=== PATIENT | female | born 1965 | race African-American/Black ===

== ENCOUNTER 2016-02-18 08:13 | Outpatient (CLI) | payer MEDICARE, MEDICAID ==
[2016-02-18 08:42] LABS: #Basophils 0.1 thou/uL (0.0-0.2); #Lymphocytes 1.3 thou/uL (1.20-3.40); #Monocytes 0.5 thou/uL (0.11-0.59); #Neutrophils 4.7 thou/uL (1.40-6.50); %Basophils 1.5 % (0.0-1.0); %Lymphocytes 19.8 % (21.0-51.0); %Monocytes 7.3 % (0.0-10.0); %Neutrophils 71.4 % (42.0-75.0); Hemoglobin 13.7 g/dL (12.0-16.0); Mean Corpuscular HGB CONC 33.9 g/dL (32.0-36.0); Mean Corpuscular Hemoglobin 33.2 pg (27.0-31.0); Mean Corpuscular Volume 97.9 fl (81.0-99.0); Mean Platelet Volume 7.9 fL (7.4-10.4); Platelet Count 208 thou/uL (130-400); RBC Distribution Width 13.8 % (11.5-14.5); Red Blood Cell (RBC) Count 4.13 mill/uL (4.20-5.40); White Blood Cell (WBC) Count 6.6 thou/uL (4.8-10.8)
[2016-02-18 09:02] LABS: ALT (SGPT) 11 U/L (0-55); AST (SGOT) 17 U/L (5-34); Albumin 3.8 g/dL (3.5-5.0); Alkaline Phosphatase 57 U/L (40-150); Anion Gap 17 mmol/L (10-20); BUN (Urea Nitrogen) 15 mg/dL (9.8-20.1); Bilirubin, Direct 0.2 mg/dL (0.1-0.3); Bilirubin, Total 0.5 mg/dL (0.2-1.2); Calc. Creatinine Clearance 0 mL/min (70-130); Carbon Dioxide 27 mmol/L (22-29); Cardiac Risk 2.7 (Less than 4.5); Chloride 103 mmol/L (98-107); Cholesterol 184 mg/dL (< 200 Desired); Estimated GFR-MDRD 83; Glucose 91 mg/dL (70-105); HDL Cholesterol 67 mg/dL (>60 Neg Risk); LDL Cholesterol, Calculated 92 mg/dL; Potassium 4.5 mmol/L (3.5-5.1); Sodium 142 mmol/L (136-145); Triglycerides 124 mg/dL (Less than 150)
== END 2016-02-18 08:14 ==
LOC: MADLABBHPM 08:13
PROVIDERS: ATTEND Family Medicine
DX: I10 Essential (primary) hypertension (principal)
CPT/HCPCS: 36415; 80048; 80061; 80076; 85025

== ENCOUNTER 2016-04-17 10:27 | Outpatient (CLI) | payer MEDICARE, MEDICAID ==
[2016-04-17 10:51] LABS: Bilirubin Negative (Negative); Blood, Urine Small (Negative); Clarity Clear (Clear); Glucose, Urine (Dipstick) Negative (Negative); Leukocyte Trace (Negative); Nitrite Negative (Negative); Protein, Urine (Dipstick) Negative (Neg-Trace); Urobilinogen 0.2 mg/dL (0.2-1.0); pH, Urine 5.5 (5.0-9.0)
[2016-04-17 11:32] LABS: Squamous Epithelial 0-3 HPF (0-3)
--- NOTE | 2016-04-17 13:39 | RAD ---
CHEST TWO VIEWS HISTORY: Generalized edema. COMPARISON: 04/25/2009 FINDINGS: The cardiac silhouette is at the upper limits of normal in size. Pulmonary vasculature is slightly engorged with reticulonodular interstitial prominence throughout each lung and mild bilateral perihi lar and bibasilar infiltrates. The mediastinum is midline. There is no lobar consolidation, pneumo thorax, or pleural fluid evident. IMPRESSION: Pulmonary vascular congestion. Borderline cardiomegaly. POS: [facility]
== END 2016-04-17 10:28 | disposition home or self-care (01) ==
LOC: MADLABBHPM 10:27
PROVIDERS: ATTEND Family Medicine
DX: R60.1 Generalized edema (principal)
CPT/HCPCS: 36415; 71020; 81001; 84443; 93005; 93010

== ENCOUNTER 2016-04-27 08:16 | Outpatient (CLI) | payer MEDICARE, MEDICAID ==
--- NOTE | 2016-04-27 08:44 | RAD ---
PA AND LATERAL VIEWS CHEST: HISTORY: ?? Heart failure. FINDINGS: Comparison is made with the exam of 04/17/16. There is stable borderline cardiomegaly. There is continued mild prominence of the interstitial mar kings. No confluent areas of consolidation, pneumothoraces, or pleural effusions are seen. IMPRESSION: Stable exam. POS: [facility]
[2016-04-27 10:09] LABS: Anion Gap 13 mmol/L (10-20); BUN (Urea Nitrogen) 16 mg/dL (9.8-20.1); Calc. Creatinine Clearance 0 mL/min (70-130); Calcium 9.4 mg/dL (7.8-10.44); Carbon Dioxide 32 mmol/L (22-29); Chloride 102 mmol/L (98-107); Estimated GFR-MDRD 75; Glucose 97 mg/dL (70-105); Potassium 3.7 mmol/L (3.5-5.1); Sodium 143 mmol/L (136-145)
== END 2016-04-27 08:17 | disposition home or self-care (01) ==
LOC: MADLABBHPM 08:16
PROVIDERS: ATTEND Family Medicine
DX: I50.9 Heart failure, unspecified (principal)
CPT/HCPCS: 36415; 71020; 80048

== ENCOUNTER 2016-05-22 08:07 | Outpatient (CLI) | payer MEDICARE, MEDICAID ==
[2016-05-22 09:27] LABS: Anion Gap 14 mmol/L (10-20); BUN (Urea Nitrogen) 19 mg/dL (9.8-20.1); Calc. Creatinine Clearance 0 mL/min (70-130); Calcium 9.6 mg/dL (7.8-10.44); Carbon Dioxide 26 mmol/L (22-29); Chloride 105 mmol/L (98-107); Estimated GFR-MDRD 82; Glucose 99 mg/dL (70-105); Potassium 4.2 mmol/L (3.5-5.1); Sodium 141 mmol/L (136-145)
--- NOTE | 2016-05-22 09:32 | RAD ---
PA AND LATERAL CHEST: Indication: CHF IMPRESSION: No acute cardiopulmonary abnormality. There is stable cardiomegaly. COMMENTS: Exam is compared to a prior dated 04-27-16. Pulmonary vasculature is within normal limits. No acute o sseous abnormality is evident. POS: [facility]
== END 2016-05-22 08:08 ==
LOC: MADLABBHPM 08:07
PROVIDERS: ATTEND Family Medicine
DX: E87.6 Hypokalemia (principal); E89.0 Postprocedural hypothyroidism
CPT/HCPCS: 36415; 71020; 80048; 84443

== ENCOUNTER 2016-10-26 08:25 | Outpatient (CLI) | payer MEDICARE, MEDICAID ==
[2016-10-26 09:48] LABS: Anion Gap 13 mmol/L (10-20); BUN (Urea Nitrogen) 22 mg/dL (9.8-20.1); Calc. Creatinine Clearance 0 mL/min (70-130); Calcium 9.2 mg/dL (7.8-10.44); Carbon Dioxide 30 mmol/L (22-29); Chloride 102 mmol/L (98-107); Estimated GFR-MDRD 75; Glucose 96 mg/dL (70-105); Potassium 3.8 mmol/L (3.5-5.1); Sodium 141 mmol/L (136-145)
== END 2016-10-26 08:26 | disposition home or self-care (01) ==
LOC: MADLABBHPM 08:25
PROVIDERS: ATTEND Family Medicine
DX: E89.0 Postprocedural hypothyroidism (principal)
CPT/HCPCS: 36415; 80048; 84443

== ENCOUNTER 2017-10-02 10:59 | Emergency (ER) | payer MEDICARE, MEDICAID | END 2017-10-02 11:35 | disposition home or self-care (01) | LOC: MADERS 10:59 | DX: I10 Essential (primary) hypertension (principal); F17.210 Nicotine dependence, cigarettes, uncomplicated; Z79.899 Other long term (current) drug therapy; Z79.82 Long term (current) use of aspirin | CPT/HCPCS: 99283 ==

== ENCOUNTER 2018-07-03 15:14 | Emergency (ER) | payer MEDICARE, MEDICAID ==
[2018-07-03] MEDS ORDERED: AMOXicillin 250 MG CAP ONE (15:52)
== END 2018-07-03 15:58 | disposition home or self-care (01) ==
LOC: MADERS 15:14
DX: K04.7 Periapical abscess without sinus (principal); L02.01 Cutaneous abscess of face; I10 Essential (primary) hypertension; E03.9 Hypothyroidism, unspecified; J45.909 Unspecified asthma, uncomplicated; F17.210 Nicotine dependence, cigarettes, uncomplicated; Z79.82 Long term (current) use of aspirin; Z79.899 Other long term (current) drug therapy; Z79.51 Long term (current) use of inhaled steroids
CPT/HCPCS: 99282

== ENCOUNTER 2018-10-08 14:36 | Emergency (ER) | payer MEDICARE, MEDICAID | END 2018-10-08 15:07 | disposition home or self-care (01) | LOC: MADERS 14:36 | DX: I10 Essential (primary) hypertension (principal); E03.9 Hypothyroidism, unspecified; J45.909 Unspecified asthma, uncomplicated; F17.210 Nicotine dependence, cigarettes, uncomplicated; Z79.82 Long term (current) use of aspirin; Z79.899 Other long term (current) drug therapy; Z79.51 Long term (current) use of inhaled steroids | CPT/HCPCS: 99283 ==

== ENCOUNTER 2018-11-15 20:10 | Emergency (ER) | payer MEDICARE, MEDICAID | END 2018-11-15 20:56 | disposition home or self-care (01) | LOC: MADERS 20:10 | DX: I10 Essential (primary) hypertension (principal); E03.9 Hypothyroidism, unspecified; J45.909 Unspecified asthma, uncomplicated; F32.9 Major depressive disorder, single episode, unspecified; F17.210 Nicotine dependence, cigarettes, uncomplicated; Z79.82 Long term (current) use of aspirin; Z79.899 Other long term (current) drug therapy; Z79.51 Long term (current) use of inhaled steroids | CPT/HCPCS: 99283 ==

== ENCOUNTER 2019-03-13 10:18 | Emergency (ER) | payer MEDICARE, MEDICAID ==
--- NOTE | 2019-03-13 10:47 | RAD ---
Portable chest: HISTORY: Dyspnea COMPARISON: 05/22/2016 FINDINGS:Cardiomegaly. Evidence of mild vascular congestion. Soft tissue attenuation limits evaluatio n. Evidence of small effusions and bibasilar atelectasis. IMPRESSION:Findings as above
[2019-03-13 10:56] LABS: Bilirubin Negative (Negative); Blood, Urine Trace (Negative); Clarity Clear (Clear); Glucose, Urine (Dipstick) Negative (Negative); Leukocyte Negative (Negative); Nitrite Negative (Negative); Protein, Urine (Dipstick) 100 mg/dL (Neg-Trace)
[2019-03-13 10:59] LABS: Bacteria/HPF None Seen HPF (None Seen); RBC/HPF 0-3 HPF (0-3); Squamous Epithelial 0-3 HPF (0-3); WBC/HPF 0-3 HPF (0-3)
[2019-03-13 11:07] LABS: ALT (SGPT) 91 U/L (8-55); AST (SGOT) 61 U/L (5-34); Albumin 3.8 g/dL (3.5-5.0); Alkaline Phosphatase 92 U/L (40-110); Anion Gap 16 mmol/L (10-20); BUN (Urea Nitrogen) 23 mg/dL (9.8-20.1); Bilirubin, Total 0.5 mg/dL (0.2-1.2); Calc. Creatinine Clearance 0 mL/min (70-130); Calcium 8.7 mg/dL (7.8-10.44); Carbon Dioxide 35 mmol/L (22-29); Chloride 97 mmol/L (98-107); Estimated GFR-MDRD 58; Glucose 110 mg/dL (70-105); Potassium 3.6 mmol/L (3.5-5.1); Protein, Total 5.8 g/dL (6.0-8.3); Sodium 144 mmol/L (136-145)
[2019-03-13] MEDS ORDERED: Furosemide 40 MG/4 ML VIAL ONE (11:14)
[2019-03-13] MEDS ORDERED: Nitroglycerin 2% Ointment 1 INCH/1 GM Packet ONE (11:14)
[2019-03-13 11:34] LABS: Band 2 % (5-11); Hemoglobin 14.2 g/dL (12.0-16.0); Lymphocytes 40 % (21-51); MDiff Complete? YES; Mean Corpuscular HGB CONC 29.4 g/dL (32.0-36.0); Mean Corpuscular Hemoglobin 30.1 pg (27.0-31.0); Mean Corpuscular Volume 102.3 fL (78.0-98.0); Mean Platelet Volume 7.8 fL (7.4-10.4); Monocytes 3 % (0-10); Neutrophil 48 % (42-75); Nucleated RBC 8 % (0); Platelet Count 218 thou/uL (130-400); RBC Distribution Width 17.5 % (11.5-14.5); Reactive Lymphocytes 7 % (0-10); Red Blood Cell (RBC) Count 4.73 mill/uL (4.20-5.40); White Blood Cell (WBC) Count 7.7 thou/uL (4.8-10.8)
== END 2019-03-13 13:25 | disposition short-term general hospital (02) ==
LOC: MADERS 10:18
DX: I11.0 Hypertensive heart disease with heart failure (principal); I50.1 Left ventricular failure, unspecified; G47.30 Sleep apnea, unspecified; E03.9 Hypothyroidism, unspecified; J45.909 Unspecified asthma, uncomplicated; F32.9 Major depressive disorder, single episode, unspecified; F17.210 Nicotine dependence, cigarettes, uncomplicated; Z79.82 Long term (current) use of aspirin; Z79.899 Other long term (current) drug therapy; Z79.51 Long term (current) use of inhaled steroids
CPT/HCPCS: 36415; 51701; 71045; 80053; 81003; 81015; 83605; 83880; 84443; 84484; 85025; 93005; 94660; 94760; 96374; A4353; J1940

== ENCOUNTER 2019-03-21 17:38 | Inpatient (IN) | payer MEDICARE, MEDICAID ==
[2019-03-21] MEDS ORDERED: Acetaminophen 325 MG TAB PO PRN (18:19)
[2019-03-21] MEDS: Carvedilol 6.25 MG TAB PO SCH (22:09)
[2019-03-21] MEDS: cloNIDine 0.1 MG TAB PO SCH (22:10)
[2019-03-21] MEDS: risperiDONE 0.5 MG TAB PO SCH (22:10)
[2019-03-21] MEDS: Cefdinir 300 MG CAP PO SCH (22:10)
[2019-03-22] MEDS: Levothyroxine Sodium 50 MCG TAB PO SCH (05:32)
[2019-03-22] MEDS: Levothyroxine Sodium 100 MCG TAB PO SCH (05:32)
[2019-03-22 06:14] LABS: ALT (SGPT) 30 U/L (8-55); AST (SGOT) 21 U/L (5-34); Alkaline Phosphatase 67 U/L (40-110); Anion Gap 16 mmol/L (10-20); BUN (Urea Nitrogen) 9 mg/dL (9.8-20.1); Bilirubin, Total 1.3 mg/dL (0.2-1.2); Calc. Creatinine Clearance 121 mL/min (70-130); Calcium 9.1 mg/dL (7.8-10.44); Carbon Dioxide 31 mmol/L (22-29); Chloride 99 mmol/L (98-107); Estimated GFR-MDRD 84; Globulin 2.6 g/dL (2.4-3.5); Glucose 121 mg/dL (70-105); Potassium 3.5 mmol/L (3.5-5.1); Protein, Total 6.6 g/dL (6.0-8.3); Sodium 142 mmol/L (136-145)
[2019-03-22 06:16] LABS: Lymphocytes 20 % (21-51); MDiff Complete? YES; Mean Corpuscular HGB CONC 29.9 g/dL (32.0-36.0); Mean Corpuscular Hemoglobin 29.3 pg (27.0-31.0); Mean Corpuscular Volume 98.1 fL (78.0-98.0); Mean Platelet Volume 7.7 fL (7.4-10.4); Monocytes 3 % (0-10); Neutrophil 77 % (42-75); Platelet Count 251 thou/uL (130-400); RBC Distribution Width 16.7 % (11.5-14.5); Red Blood Cell (RBC) Count 5.13 mill/uL (4.20-5.40); White Blood Cell (WBC) Count 5.6 thou/uL (4.8-10.8)
[2019-03-22 06:17] LABS: Anisocytosis SLIGHT = 6-15 cells (100X) (0-5/hpf); Platelet Morphology Comment Appears Adequate
--- NOTE | 2019-03-22 07:31 | HP ---
CHIEF COMPLAINT: Severe weakness and deconditioning following hospitalization for congestive heart failure. HISTORY OF PRESENT ILLNESS: The patient is a 53-year-old Tan female, who has a history of hypertensive heart disease, hypertension, obstructive sleep apnea, postablative hypothyroidism, obesity, and psychotic disorder with hallucinations. The patient had presented to my office on 03/13/2019, because of increasing swelling, increasing weight gain, and sleeping all the time. In the office, she was found to be very hypoxic and could not stay awake. She was taken to the emergency room and then transferred to [facility] in acute respiratory failure and placed on supplemental O2 and BiPAP. The patient was hospitalized at [facility] from 03/13 to 03/21/2019 with the diagnosis of acute respiratory failure with hypoxemia and hypercapnia that required initially BiPAP with intubation and respiratory care. She was found to have marked atelectasis and underwent a bronchoscopy by Pulmonary doctor, Dr. Raymond on 03/16/2019, and was found to have large amounts of tenacious mucus that were cleared. The bronchial tubes were lavaged. No obstruction was found. Afterward, she was breathing much better and was able to be extubated. She was found to be in acute on chronic congestive heart failure. Her echocardiogram done on 03/14, showed EF of 60% to 65%, moderate left ventricular hypertrophy, one out of three diastolic dysfunction, and mild enlargement of the left atrium. She was seen in consult by client services analyst, Dr. Timmons, who thought she had acute on chronic diastolic heart failure. Also, probably had chronic right heart failure producing chronic edema secondary to obstructive sleep apnea, obesity, and hypoventilation syndrome. She recently was found to have elevation of her TSH to 40 in spite of a high dose of levothyroxine that is 250 mcg. The patient showed marked improvement with IV hydration and supplemental O2 with drop in her weight from an admission weight of 244 to 223. She was left though very weak. It was recommended that she be admitted at [facility] for further conditioning also to make arrangement for outpatient sleep studies for probable sleep apnea. The patient was seen soon after her admission. She was sitting on the side of the bed, recognized me and looked far better than when she was transferred to [place]. She was talkative, awake, and remained awake throughout the admission. She said she was doing fine. PAST MEDICAL HISTORY: Hospitalized at [facility] from 03/13/2019 to 03/21/2019 for acute respiratory failure with hypoxic and hypercapnic failure and acute on chronic diastolic congestive heart failure. She required bronchoscopy on 03/14 for atelectasis with removal of large tenacious mucus from the bronchial tubes. Afterwards, was able to be extubated and has done well since then. Also , echocardiogram was done that showed moderate LVH, mild left atrial enlargement, and one of three diastolic dysfunction. The patient was initially diagnosed with congestive heart failure in April of 2016. She did opt not to see the client services analyst and was treated with diuresis with marked improvement. The patient has postablative hypothyroidism. She was initially found to be hyperthyroid and required radioactive iodine treatment years previously. She has mental retardation. She has psychotic disorder with hallucinations and controlled with risperidone. 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 She has chronic tobacco abuse, chronic anxiety disorder. The patient is a 2, para 2, both children , one at six weeks of age, the other [age] years of age. The patient has COPD, hypertension, obesity, venous insufficiency, nicotine abuse, and obstructive sleep apnea. She do not think she has ever undergone sleep studies. The patient has had GENESIS and BSO in 2005 for hypermenorrhea. PRESENT MEDICINES: 1. Risperidone 0.5 mg at bedtime. 2. Levothyroxine 200 mcg daily. 3. Levothyroxine 50 mcg daily. 4. DuoNeb nebulizer q.i.d. and every 4 hours as needed. 5. Amlodipine 5 mg daily. 6. Cefdinir 300 mg b.i.d. for additional three days from her admission date at [facility]. 7. Carvedilol 6.25 mg b.i.d. 8. Aspirin 81 mg daily. 9. Furosemide 40 mg daily. 10. Potassium chloride 10 mEq daily. 11. Clonidine 0.2 mg b.i.d. 12. O2 at 3 L by nasal cannula. ALLERGIES: NO KNOWN ALLERGIES. REVIEW OF SYSTEMS: GENERAL: The patient says she feels much better. She has lost from 244 on 03/13/2019 to 223 on 03/21/2019. HEAD AND NECK: No complaints. CARDIOVASCULAR: The patient said she is not having any breathing trouble. She is on supplemental O2. No chest pain. : The patient denies any problem urinating. GI: No nausea, vomiting, or change in bowel habits. ADLS: Ordinarily prior to this hospitalization, she was independent of her ADLs. NEUROPSYCHIATRIC: The patient has a long history of an anxiety disorder and psychotic disorder. Has been hospitalized previously at [place] years ago. She has been on long-term antipsychotics for control of her symptoms, these were stopped , and she had recurrence of the hallucinations and psychosis since been controlled on the risperidone. HABITS: The patient smokes less than a pack of cigarettes a day, which she has done for many years. Alcohol, none. SOCIAL HISTORY: The patient is not . She lives with her mother, who manages all her instrumental ADLs. CODE STATUS: Full code. PHYSICAL EXAMINATION: GENERAL: Shows a 53-year-old obese Tan female, who is sitting on the side of her bed. She was alert and talkative and recognized me. VITAL SIGNS: Her temperature was 97.2, pulse 67, respirations 16, O2 saturation 95% on 3 L, blood pressure 175/79. Her weight is 223. HEENT: Head, normocephalic and atraumatic. Eyes, the patient has proptosis. There is some redness of the conjunctivae. Ears, TMs are clear. Nose, normal. Mouth and throat, normal. Face, the patient has a lipoma on the left cheek area that is about 2 cm in diameter. NECK: Carotids are equal and strong. No bruits. Thyroid not enlarged. There is no adenopathy. LUNGS: Clear. HEART: Regular rate. ABDOMEN: Obese. No organomegaly. EXTREMITIES: The patient has some chronic lipedema of the lower extremities, this is much better than a few days ago. She still has 1+ edema. NEUROLOGIC: The patient is alert and oriented to person and place with generalized weakness, but nonfocal. IMPRESSION: 1. Generalized weakness and deconditioning;. a. Following recent hospitalization for acute on chronic congestive heart failure. b. Hospitalized at [facility] from 03/13 until 03/21 for acute hypoxic hypercapnic congestive heart failure, acute on chronic diastolic congestive heart failure. 2. Required ventilatory support and bronchoscopy for mucus plugging, probable chronic right heart failure from probable obstructive sleep apnea and hypoventilation syndrome and obesity. Echocardiogram showed left ventricular hypertrophy. Mild left atrial enlargement and left ventricular hypertrophy. Mild mitral and tricuspid regurgitation and right ventricular systolic pressure 37 mmHg. 3. Cardiomyopathy secondary to hypertensive heart disease. 4. Hypertension with left ventricular hypertrophy. 5. Chronic diastolic congestive heart failure. 6. Suspect chronic right heart failure;. a. Probably secondary to obstructive sleep apnea, hypoventilation syndrome, and obesity. 7. Postablative hypothyroidism. a. History of hyperthyroidism, treated with radioactive iodine years ago. b. Treated with large doses of levothyroxine, but recent TSH elevated to 40. 8. 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 a.S/P Embolization in September 2000. 9. Obesity. 10. Cigarette abuse. 11. Mental retardation. 12. Psychotic disorder with hallucinations. a. Controlled on risperidone. b. Previous effort to stop the medicine unsuccessful. 13. Chronic edema of the lower extremities. PLAN: The patient has been admitted to [facility] for continuation of her present medicines and for purpose of PT and OT in an effort to try to improve her general functional capability. We will place her on a regular diet. No added salt and fluid restriction of 1500 mL a day. The patient will need to be arranged for a sleep study. Code status, full code. See orders. Job ID: [id number] [facility]
[2019-03-22] MEDS: Enoxaparin Sodium 40 MG/0.4 ML SYRINGE SC SCH (08:24)
[2019-03-22] MEDS: Furosemide 40 MG TAB PO SCH (08:25)
[2019-03-22] MEDS: Carvedilol 6.25 MG TAB PO SCH ×2 (08:25→20:38)
[2019-03-22] MEDS: Cefdinir 300 MG CAP PO SCH ×2 (08:25→20:39)
[2019-03-22] MEDS: Amlodipine 5 MG TAB PO SCH (08:25)
[2019-03-22] MEDS: cloNIDine 0.1 MG TAB PO SCH ×2 (08:25→20:38)
[2019-03-22] MEDS: Potassium Chloride 10 MEQ TAB PO SCH (08:25)
[2019-03-22] MEDS: Aspirin Chewable 81 MG TAB PO SCH (08:26)
--- NOTE | 2019-03-22 11:15 | PRG ---
DATE OF SERVICE: 03/22/2019 SUBJECTIVE: The patient said she had a good night. Her mother, Aki Puente, is with her this morning, and she says she looks like herself again. She is doing so much better. OBJECTIVE: GENERAL: The patient is alert, talkative, appears comfortable, in no distress. She had her oxygen off and had to be reminded to wear this, this was replaced. VITAL SIGNS: Her temperature is 98.1; pulse 63; respirations 16; O2 saturations without O2 was 90%, on 3 L 97%; blood pressure 152/70. Her weight 221. LUNGS: Clear. HEART: Regular rate. LABORATORY DATA: Hemoglobin and hematocrit 15 and 50.3, white cell count 5600 with 77% segs, 20% lymphocytes, and platelet count of 251,000. Sodium 142, potassium 3.5, BUN 9, creatinine 0.85, glucose 121. ASSESSMENT: 1. Generalized weakness and deconditioning. a. Following recent hospitalization for acute on chronic congestive heart failure with respiratory failure. b. Improved as of 03/22. 2. Hospitalized at [facility] from 03/13 until 03/21/2019 for acute hypoxic hypercapnic congestive heart failure, acute on chronic diastolic congestive heart failure, required ventilatory support and bronchoscopy for mucus plugging, probable chronic right heart failure producing chronic peripheral edema secondary to obstructive sleep apnea, hypoventilation syndrome, and obesity. Echocardiogram showed left ventricular hypertrophy, mild left atrial enlargement, and ejection fraction of 60% to 65%. Right ventricular systolic pressure 37. 3. Hypertensive cardiomyopathy. 4. Hypertension with left ventricular hypertrophy. 5. Chronic diastolic congestive heart failure. 6. Probable chronic right heart failure. a. Secondary to probable obstructive sleep apnea, hypoventilation syndrome, and obesity. 7. Postablative hypothyroidism. a. History of hyperthyroidism treated with radioactive iodine years ago. b. Treated with large doses of levothyroxine, but recent TSH elevated to 40. 8. 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 a. Status post embolization in September 2000. 9. Obesity. 10. Cigarette abuse. a. Off cigarettes since her admission on 03/13. 11. Mental retardation. 12. Psychotic disorder with hallucinations. a. Controlled on risperidone. b. Previous efforts to stop this medicine unsuccessful. 13. Chronic edema of the lower extremities. PLAN: The patient is doing better. We will continue present care and PT and OT. Job ID: [id number] [facility]
[2019-03-22] MEDS: risperiDONE 0.5 MG TAB PO SCH (20:38)
[2019-03-23] MEDS: Levothyroxine Sodium 50 MCG TAB PO SCH (05:31)
[2019-03-23] MEDS: Levothyroxine Sodium 100 MCG TAB PO SCH (05:31)
[2019-03-23] MEDS: cloNIDine 0.1 MG TAB PO SCH ×2 (08:40→20:59)
[2019-03-23] MEDS: Enoxaparin Sodium 40 MG/0.4 ML SYRINGE SC SCH (08:40)
[2019-03-23] MEDS: Aspirin Chewable 81 MG TAB PO SCH (08:42)
[2019-03-23] MEDS: Potassium Chloride 10 MEQ TAB PO SCH (08:42)
[2019-03-23] MEDS: Cefdinir 300 MG CAP PO SCH ×2 (08:42→20:59)
[2019-03-23] MEDS: Amlodipine 5 MG TAB PO SCH (08:42)
[2019-03-23] MEDS: Carvedilol 6.25 MG TAB PO SCH ×2 (08:42→20:59)
[2019-03-23] MEDS: Furosemide 40 MG TAB PO SCH (08:43)
--- NOTE | 2019-03-23 09:09 | PRG ---
DATE OF SERVICE: 03/23/2019 SUBJECTIVE: The patient feels better today. She had no complaint. OBJECTIVE: GENERAL: The patient is sitting on the edge of the bed. Her oxygen had come off and this was replaced. She is talkative, looks comfortable, and in no distress. VITAL SIGNS: Her temp is 98.1, pulse 67, respirations 18, O2 saturation 94% with 2 L by nasal cannula, blood pressure 146/66, weight 221. LUNGS: Clear. HEART: Regular rate. EXTREMITIES: Trace edema. ASSESSMENT: 1. Generalized weakness and deconditioning. a. Following recent hospitalization for acute on chronic congestive heart failure with respiratory failure. b. Continued improvement as of 03/23. c. Hospitalized at [facility] from 03/13 until 03/21/2019 for acute hypoxic hypercapnic respiratory failure secondary to acute on chronic diastolic congestive heart failure, requiring ventilatory support and bronchoscopy for removal of mucus plugging. Chronic right heart failure producing chronic peripheral edema secondary to obstructive sleep apnea, probable hypoventilation syndrome and obesity. Echocardiogram showed left ventricular hypertrophy, mild left atrial enlargement. Ejection fraction of 60% to 65%. Right ventricular systolic pressure 37. 2. Hypertensive cardiomyopathy. 3. Hypertension with left ventricular hypertrophy. 4. Chronic diastolic congestive heart failure. 5. Probable chronic right heart failure. a. Secondary to probable obstructive sleep apnea, hypoventilation syndrome, and obesity. 6. Post-ablated hypothyroidism. a. History of hyperthyroidism treated with radioactive iodine years ago. b. Treated with large doses of levothyroxine. Recent TSH elevated at 40. 7. Proptosis secondary to a carotid cavernous sinus fistula. a. Status post embolization September 2000. 8. Obesity. 9. Cigarette abuse. a. Off cigarette since admission on 03/13/2019. 10. Mental retardation. 11. Psychotic disorder with hallucination. a. Controlled on risperidone. b. Previous efforts to stop this unsuccessful. 12. Chronic edema of the lower extremities. a. Improved. PLAN: Continue present care. Job ID: [id number] [facility]
[2019-03-23] MEDS: risperiDONE 0.5 MG TAB PO SCH (20:59)
[2019-03-24] MEDS: Levothyroxine Sodium 100 MCG TAB PO SCH (05:40)
[2019-03-24] MEDS: Levothyroxine Sodium 50 MCG TAB PO SCH (05:40)
[2019-03-24] MEDS: Cefdinir 300 MG CAP PO SCH (08:56)
[2019-03-24] MEDS: Potassium Chloride 10 MEQ TAB PO SCH (08:57)
[2019-03-24] MEDS: Furosemide 40 MG TAB PO SCH (08:58)
[2019-03-24] MEDS: cloNIDine 0.1 MG TAB PO SCH ×2 (08:58→20:55)
[2019-03-24] MEDS: Aspirin Chewable 81 MG TAB PO SCH (08:58)
[2019-03-24] MEDS: Carvedilol 6.25 MG TAB PO SCH ×2 (08:58→20:55)
[2019-03-24] MEDS: Amlodipine 5 MG TAB PO SCH (08:58)
[2019-03-24] MEDS: Enoxaparin Sodium 40 MG/0.4 ML SYRINGE SC SCH (08:58)
[2019-03-24] MEDS: risperiDONE 0.5 MG TAB PO SCH (20:55)
[2019-03-25] MEDS: Levothyroxine Sodium 100 MCG TAB PO SCH (05:26)
[2019-03-25] MEDS: Levothyroxine Sodium 50 MCG TAB PO SCH (05:26)
[2019-03-25] MEDS: Scopolamine 1.5 mg/72 hour Patch TOP SCH (09:00)
[2019-03-25] MEDS: Enoxaparin Sodium 40 MG/0.4 ML SYRINGE SC SCH (09:02)
[2019-03-25] MEDS: Aspirin Chewable 81 MG TAB PO SCH (09:02)
[2019-03-25] MEDS: cloNIDine 0.1 MG TAB PO SCH ×2 (09:03→21:02)
[2019-03-25] MEDS: Potassium Chloride 10 MEQ TAB PO SCH (09:03)
[2019-03-25] MEDS: Amlodipine 5 MG TAB PO SCH (09:03)
[2019-03-25] MEDS: Carvedilol 6.25 MG TAB PO SCH ×2 (09:03→21:02)
[2019-03-25] MEDS: Furosemide 40 MG TAB PO SCH (09:04)
[2019-03-25] MEDS: risperiDONE 0.5 MG TAB PO SCH (21:01)
[2019-03-26] MEDS: Levothyroxine Sodium 100 MCG TAB PO SCH (05:40)
[2019-03-26] MEDS: Levothyroxine Sodium 50 MCG TAB PO SCH (05:40)
[2019-03-26] MEDS: Furosemide 40 MG TAB PO SCH (08:23)
[2019-03-26] MEDS: Aspirin Chewable 81 MG TAB PO SCH (08:24)
[2019-03-26] MEDS: Potassium Chloride 10 MEQ TAB PO SCH (08:24)
[2019-03-26] MEDS: cloNIDine 0.1 MG TAB PO SCH ×2 (08:24→20:36)
[2019-03-26] MEDS: Amlodipine 5 MG TAB PO SCH (08:24)
[2019-03-26] MEDS: Carvedilol 6.25 MG TAB PO SCH ×2 (08:25→20:36)
[2019-03-26] MEDS: Enoxaparin Sodium 40 MG/0.4 ML SYRINGE SC SCH (08:25)
[2019-03-26] MEDS: risperiDONE 0.5 MG TAB PO SCH (20:36)
[2019-03-27] MEDS: Levothyroxine Sodium 50 MCG TAB PO SCH (05:12)
[2019-03-27] MEDS: Levothyroxine Sodium 100 MCG TAB PO SCH (05:15)
--- NOTE | 2019-03-27 07:37 | PRG ---
DATE OF SERVICE: 03/24/2019 SUBJECTIVE: The patient says she is doing good today. She has to be reminded to keep her oxygen on. She is working well with Physical Therapy. OBJECTIVE: GENERAL: The patient is alert, talkative, appears comfortable, and in no distress. VITAL SIGNS: Her temp is 97.1 pulse 56, respirations 20, O2 saturation 96% on 3 L, and blood pressure 182/86. EYES: The proptosis seems less. The conjunctiva seems less inflamed. Overall , the eyes look a little better. NECK: No thyromegaly. LUNGS: Clear. HEART: Regular rate. EXTREMITIES: Trace edema. ASSESSMENT: 1. Generalized weakness and deconditioning. a. Following recent hospitalization for acute on chronic congestive heart failure with respiratory failure. b. Continued improvement. 2. Hospitalized at [facility] from 03/13 until 03/21/2019 for acute hypoxic hypercapnic respiratory failure secondary to acute on chronic diastolic congestive failure, requiring ventilatory support and bronchoscopy for removal of mucus plugging. Chronic right heart failure producing chronic peripheral edema secondary to probable obstructive sleep apnea, probable hypoventilation syndrome and obesity. Echocardiogram showed LVH. Mild atrial enlargement. Ejection fraction 60% to 65%. Right ventricular systolic pressure of 37. 3. Hypertensive cardiomyopathy. 4. Hypertension with left ventricular hypertrophy. 5. Chronic diastolic congestive heart failure. 6. Probable chronic right heart failure. a. Secondary to probable obstructive sleep apnea, hypoventilation syndrome, and obesity. 7. Post-ablated hypothyroidism. a. History of hyperthyroidism, treated with radioactive iodine years ago. b. Treated with large dose of levothyroxine. Recent TSH elevated at 40. 8. Proptosis secondary to a carotid cavernous sinus fistula. a. Status post embolization in September 2000. 9. Obesity. 10. Cigarette abuse. a. Off cigarette since admission on 03/13. 11. Mental retardation. 12. Psychotic disorder with hallucination. a. Controlled on risperidone. b. Previous efforts to decrease her stop this were unsuccessful. 13. Chronic edema of the lower extremities. a. Improved. PLAN: Continue present care. Continue O2. Have arranged for the patient to have an overnight sleep study. This will be done on the evening of 03/28. Job ID: [id number] [facility]
[2019-03-27] MEDS: Furosemide 40 MG TAB PO SCH (08:01)
[2019-03-27] MEDS: Carvedilol 6.25 MG TAB PO SCH ×2 (08:01→20:22)
[2019-03-27] MEDS: Amlodipine 5 MG TAB PO SCH (08:01)
[2019-03-27] MEDS: Potassium Chloride 10 MEQ TAB PO SCH (08:02)
[2019-03-27] MEDS: cloNIDine 0.1 MG TAB PO SCH ×2 (08:02→20:22)
[2019-03-27] MEDS: Aspirin Chewable 81 MG TAB PO SCH (08:02)
[2019-03-27] MEDS: Enoxaparin Sodium 40 MG/0.4 ML SYRINGE SC SCH (08:03)
--- NOTE | 2019-03-27 11:10 | PRG ---
DATE OF SERVICE: 03/27/2019 SUBJECTIVE: The patient thinks she is doing better. Her mother is staying with her most of the time and says they hope they keep her longer to help her get stronger. This morning, she was out on entry port to the hospital smoking. She was talkative and appears in no distress. OBJECTIVE: VITAL SIGNS: Her temperature is 97.5, pulse 75, respirations 18, O2 saturation 99% on room air today, blood pressure 188/88. Has not had blood pressure medicine yet. LUNGS: Clear. HEART: Regular rate. EXTREMITIES: Trace edema. ASSESSMENT: 1. Generalized weakness and deconditioning. a. Following hospitalization for acute on chronic congestive heart failure with respiratory failure. b. Continued improvement. 2. Hospitalized at [facility] for 03/13 until 03/21/2019 for acute hypoxic hypercapnic respiratory failure secondary to acute on chronic diastolic congestive heart failure, requiring ventilatory support. Bronchoscopy for removal of mucus plugging. Chronic right heart failure producing chronic peripheral edema secondary to probable obstructive sleep apnea, probable hypoventilation syndrome, and obesity. Echocardiogram showed left ventricular hypertrophy, mild atrial enlargement, and ejection fraction 60% to 65%, right ventricular systolic pressure 37. 3. Hypertensive cardiomyopathy. 4. Hypertension with left ventricular hypertrophy. 5. Chronic diastolic congestive heart failure. a. No evidence of acute congestive failure as of 03/27. 6. Probable chronic right heart failure. 7. Post-ablated hypothyroidism. a. History of hyperthyroidism treated with radioactive iodine years ago. b. Treated with large dose of levothyroxine. Recent TSH elevated at 40. 8. Proptosis secondary to carotid-cavernous sinus fistula. a. Status post embolization in September 2000. 9. Obesity. 10. Cigarette abuse. a. Continues to smoke intermittently. 11. Mental retardation. 12. Psychotic disorder with hallucination. a. Controlled on risperidone. b. Previous efforts to decrease or stop this medicine unsuccessful. 13. Chronic edema in the lower extremities improved. PLAN: 1. Continue present care. 2. The patient to do first sleep study on the evening of 03/28. Continue PT. Job ID: [id number] [facility]
[2019-03-27 14:27] VITALS: BMI 43.6
[2019-03-27] MEDS: risperiDONE 0.5 MG TAB PO SCH (20:22)
[2019-03-28] MEDS: Levothyroxine Sodium 50 MCG TAB PO SCH ×2 (06:06→06:07)
[2019-03-28] MEDS: Levothyroxine Sodium 100 MCG TAB PO SCH (06:06)
[2019-03-28] MEDS: cloNIDine 0.1 MG TAB PO SCH ×2 (08:16→20:49)
[2019-03-28] MEDS: Carvedilol 6.25 MG TAB PO SCH ×2 (08:16→20:49)
[2019-03-28] MEDS: Potassium Chloride 10 MEQ TAB PO SCH (08:16)
[2019-03-28] MEDS: Furosemide 40 MG TAB PO SCH (08:16)
[2019-03-28] MEDS: Aspirin Chewable 81 MG TAB PO SCH (08:16)
[2019-03-28] MEDS: Enoxaparin Sodium 40 MG/0.4 ML SYRINGE SC SCH (08:16)
[2019-03-28] MEDS: Amlodipine 5 MG TAB PO SCH (08:16)
[2019-03-28] MEDS: Scopolamine 1.5 mg/72 hour Patch TOP SCH (08:17)
[2019-03-28] MEDS: risperiDONE 0.5 MG TAB PO SCH (20:49)
[2019-03-29] MEDS: Levothyroxine Sodium 100 MCG TAB PO SCH (05:53)
[2019-03-29] MEDS: Levothyroxine Sodium 50 MCG TAB PO SCH (05:54)
[2019-03-29] MEDS: Furosemide 40 MG TAB PO SCH (07:47)
[2019-03-29] MEDS: Enoxaparin Sodium 40 MG/0.4 ML SYRINGE SC SCH (07:48)
[2019-03-29] MEDS: Potassium Chloride 10 MEQ TAB PO SCH (07:48)
[2019-03-29] MEDS: Aspirin Chewable 81 MG TAB PO SCH (07:48)
[2019-03-29] MEDS: cloNIDine 0.1 MG TAB PO SCH ×2 (07:48→21:12)
[2019-03-29] MEDS: Amlodipine 5 MG TAB PO SCH (07:48)
[2019-03-29] MEDS: Carvedilol 6.25 MG TAB PO SCH ×2 (07:48→21:12)
--- NOTE | 2019-03-29 11:01 | PRG ---
DATE OF SERVICE: SUBJECTIVE: The patient says she is doing good. Last night, she went through her sleep study. This has been removed, and report is pending. She is doing good. She is doing better with her walking. She still will go outside and smoke some. OBJECTIVE: GENERAL: The patient is alert, appears comfortable, in no distress. VITAL SIGNS: Her temperature is 98.4, pulse 78, respirations 20, O2 saturation 94% on room air, and blood pressure 141/77. Her weight is stable at 223. LUNGS: Clear. HEART: Regular rate. EXTREMITIES: Trace edema. ASSESSMENT: 1. Generalized weakness and deconditioning. a. Following hospitalization for acute on chronic congestive heart failure with respiratory failure. b. Continued improvement. 2. Hospitalized at [facility] from 03/13 until 03/21 for acute hypoxic and hypercapnic respiratory failure secondary to acute on chronic diastolic congestive heart failure, requiring ventilatory support. Status post bronchoscopy for removal of mucus plugging. Chronic right heart failure producing chronic peripheral edema secondary to probable obstructive sleep apnea, hypoventilation syndrome, and obesity. Echocardiogram showed left ventricular hypertrophy, mild atrial enlargement, ejection fraction of 60% to 65%, and right ventricular systolic pressure of 37. 3. Hypertensive cardiomyopathy. 4. Hypertension with left ventricular hypertrophy. 5. Chronic diastolic congestive heart failure. a. No evidence of acute congestive heart failure as of 03/29. 6. Probable chronic right heart failure. 7. Postablative hypothyroidism from radioactive iodine. a. History of hyperthyroidism, treated with radioactive iodine years ago. b. Treated with large dose of levothyroxine. Recent TSH elevated to 40. 8. Proptosis secondary to carotid-cavernous sinus fistula. a. Status post embolization in September 2000. 9. Obesity. 10. Cigarette abuse. a. Continues to smoke. 11. Mental retardation. 12. Psychotic disorder with hallucinations. a. Controlled on risperidone. b. Previous efforts to stop or decrease this were unsuccessful. 13. Chronic edema of the lower extremities, improved. PLAN: The patient's oxygen level today seems to be better. Overall, she looks better. The results of the sleep studies done last night are pending. We will repeat lab and TSH. Continue PT and OT. Job ID: [id number] [facility]
[2019-03-29] MEDS: risperiDONE 0.5 MG TAB PO SCH (21:12)
[2019-03-30 05:18] LABS: #Basophils 0.1 thou/uL (0.0-0.2); #Lymphocytes 1.3 thou/uL (1.20-3.40); #Monocytes 0.4 thou/uL (0.11-0.59); %Basophils 1.1 % (0.0-1.0); %Lymphocytes 22.9 % (21.0-51.0); %Monocytes 7.2 % (0.0-10.0); %Neutrophils 68.8 % (42.0-75.0); Hemoglobin 14.3 g/dL (12.0-16.0); Mean Corpuscular HGB CONC 29.4 g/dL (32.0-36.0); Mean Corpuscular Hemoglobin 29.6 pg (27.0-31.0); Mean Corpuscular Volume 100.7 fL (78.0-98.0); Mean Platelet Volume 7.9 fL (7.4-10.4); Platelet Count 273 thou/uL (130-400); Red Blood Cell (RBC) Count 4.82 mill/uL (4.20-5.40); White Blood Cell (WBC) Count 5.8 thou/uL (4.8-10.8)
[2019-03-30 05:37] LABS: ALT (SGPT) 12 U/L (8-55); AST (SGOT) 12 U/L (5-34); Albumin 3.9 g/dL (3.5-5.0); Alkaline Phosphatase 67 U/L (40-110); Anion Gap 13 mmol/L (10-20); BUN (Urea Nitrogen) 17 mg/dL (9.8-20.1); Bilirubin, Total 0.6 mg/dL (0.2-1.2); Calc. Creatinine Clearance 101 mL/min (70-130); Calcium 9.5 mg/dL (7.8-10.44); Carbon Dioxide 33 mmol/L (22-29); Chloride 102 mmol/L (98-107); Estimated GFR-MDRD 68; Globulin 2.4 g/dL (2.4-3.5); Glucose 102 mg/dL (70-105); Potassium 3.7 mmol/L (3.5-5.1); Protein, Total 6.3 g/dL (6.0-8.3); Sodium 144 mmol/L (136-145)
[2019-03-30] MEDS: Levothyroxine Sodium 50 MCG TAB PO SCH (05:53)
[2019-03-30] MEDS: Levothyroxine Sodium 100 MCG TAB PO SCH (05:53)
[2019-03-30] MEDS: Amlodipine 5 MG TAB PO SCH (08:06)
[2019-03-30] MEDS: Carvedilol 6.25 MG TAB PO SCH ×2 (08:06→21:38)
[2019-03-30] MEDS: cloNIDine 0.1 MG TAB PO SCH ×2 (08:06→21:38)
[2019-03-30] MEDS: Enoxaparin Sodium 40 MG/0.4 ML SYRINGE SC SCH (08:07)
[2019-03-30] MEDS: Potassium Chloride 10 MEQ TAB PO SCH (08:07)
[2019-03-30] MEDS: Aspirin Chewable 81 MG TAB PO SCH (08:07)
[2019-03-30] MEDS: Furosemide 40 MG TAB PO SCH (08:07)
--- NOTE | 2019-03-30 08:59 | PRG ---
DATE OF SERVICE: 03/30/2019 SUBJECTIVE: The patient said she is doing fine. She had no complaint. She is sleeping with the OT. The patient's sleep study results are pending. OBJECTIVE: GENERAL: The patient is alert, appears comfortable, in no distress. VITAL SIGNS: Her temperature 98.4, pulse 71, respirations 20, O2 saturation 91 % on room air, and blood pressure 186/84. LUNGS: Clear. HEART: Regular rate. EXTREMITIES: Trace edema. LABORATORY DATA: H and H of 14.3 and 48.5, white cell count 5800 with 69% segs , 23% lymphocytes, and platelet count of 273. Sodium 144, potassium 3.7, BUN 17, creatinine 1.02, GFR 68, and glucose 102. TSH down to 5.2. ASSESSMENT: 1. Generalized weakness and deconditioning. a. Following hospitalization for acute on chronic congestive heart failure with respiratory failure. b. Continued improvement. 2. Hospitalized at [facility] from 03/13 until 03/21 for acute hypoxic and hypercapnic respiratory failure secondary to acute on chronic diastolic congestive heart failure, requiring ventilatory support. Status post bronchoscopy for removal of mucus plugging. Chronic right heart failure with chronic peripheral edema secondary to probable obstructive sleep apnea, hypoventilation syndrome, and obesity. Echocardiogram showed left ventricular hypertrophy, mild atrial enlargement, ejection fraction 60% to 65%, and right ventricular systolic pressure of 37. 3. Hypertensive cardiomyopathy. 4. Hypertension with left ventricular hypertrophy. 5. Chronic diastolic congestive heart failure. a. No evidence of acute congestive heart failure as of 03/30. 6. Probable right heart failure. 7. Post-ablated hypothyroidism from radioactive iodine. a. History of hyperthyroidism, treated with radioactive iodine years ago. b. Treated with large dose of levothyroxine. Recent TSH of 40 has dropped to 5.2 as of 03/30/2019. 8. 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 a. Status post embolization, September 2000. 9. Obesity. 10. Cigarette abuse. a. Continues to smoke. 11. Mental retardation. 12. Psychotic disorder with hallucinations. a. Controlled on risperidone. b. Previous efforts to stop or decrease this were unsuccessful. 13. Chronic edema of the lower extremities, improved. PLAN: Continue present care. Sleep study pending. We will arrange for in- home O2 to use when sleeping and p.r.n. Job ID: [id number] [facility]
[2019-03-30] MEDS: risperiDONE 0.5 MG TAB PO SCH (21:39)
[2019-03-31] MEDS: Levothyroxine Sodium 100 MCG TAB PO SCH (06:03)
[2019-03-31] MEDS: Levothyroxine Sodium 50 MCG TAB PO SCH (06:03)
[2019-03-31 09:49] VITALS: TEMP 97.9
[2019-03-31] MEDS: Enoxaparin Sodium 40 MG/0.4 ML SYRINGE SC SCH (10:15)
[2019-03-31] MEDS: Furosemide 40 MG TAB PO SCH (10:16)
[2019-03-31] MEDS: Carvedilol 6.25 MG TAB PO SCH (10:16)
[2019-03-31] MEDS: Amlodipine 5 MG TAB PO SCH (10:16)
[2019-03-31] MEDS: Potassium Chloride 10 MEQ TAB PO SCH (10:16)
[2019-03-31] MEDS: cloNIDine 0.1 MG TAB PO SCH (10:17)
[2019-03-31] MEDS: Aspirin Chewable 81 MG TAB PO SCH (10:17)
[2019-03-31 10:18] VITALS: BP 206/92
[2019-03-31] MEDS: Scopolamine 1.5 mg/72 hour Patch TOP SCH (10:18)
--- NOTE | 2019-04-03 04:55 | PQF ---
[employer] Mechanical Maintenance Technician Crystal Reports Winform ViewerARLEENALEX VALLE DONALD RUSSO MD [id number] CLINICAL DOCUMENTATION CLARIFICATION FORM: POST DISCHARGE Addendum to original discharge summary date: ____ Late entry note date: __ DATE: 04/03/2019 ATTN:DONALD RUSSO MD Please exercise your independent, professional judgment in responding to the clarification form. Clinical indicators are provided on the bottom of this form for your review Please check appropriate box(s): Kindly clarify the below condition was Clinically significant or not [ ] Acute hypoxic and Hypercapnic Respiratory failure was Significant condition [ ] Acute hypoxic and Hypercapnic Respiratory failure was not Significant condition [ ] Other diagnosis [ ] Unable to determine In addition, please specify: Present on Admission (POA): [ ] Yes [ ] No [ ] Unable to determine For continuity of documentation, please document condition throughout progress notes and discharge summary. Thank You. CLINICAL INDICATORS - SIGNS / SYMPTOMS / LABS Respiration Rate 22 on 03/29 - Documented in Vitals Signs O2 saturation 90 on 03/22 , 2 on 03/24 and 88 on 03/26 - Documented in Vitals Signs Hospitalized at [facility] from 03/13 until 03/21 for Acute hypoxic and Hypercapnic Respiratory failure - Documented in PNs on 03/30 by DONALD RUSSO MD RISK FACTORS Chronic Diastolic heart failure - Documented in PNs on 03/30 by DONALD RUSSO MD Status post Bronchoscopy Mucus plugging removal - Documented in PNs on 03/30 by DONALD RUSSO MD FRANCO - Documented in PNs on 03/30 by DONALD RUSSO MD Hypoventilation syndrome - Documented in PNs on 03/30 by DONALD RUSSO MD TREATMENTS: O2 Delivery -Nasal cannula (This form is maintained as a part of the permanent medical record) 2014 [employer]. All Rights Reserved [employer] Mechanical Maintenance Technician Crystal Reports Winform [email or web address]
--- NOTE | 2019-04-03 07:28 | DIS ---
DATE OF ADMISSION: 03/21/2019 DATE OF DISCHARGE: 03/31/2019 Admitted to [facility] on 03/21/2019 and discharged on 03/31/2019. FINAL DIAGNOSES: 1. Generalized weakness and deconditioning. a. Following hospitalization for acute-on- chronic congestive heart failure with respiratory failure. b. Continued improvement. 2. Hospitalized at [facility] from 03/13/2019 until 03/21/2019 for acute hypoxic and hypercapnic respiratory failure secondary to [id number] diastolic congestive heart failure, requiring ventilatory support. a. Status post bronchoscopy for removal of mucus plugging. b. Chronic right heart failure with chronic peripheral edema secondary to probable obstructive sleep apnea. c. Hypoventilation syndrome and obesity. d. Echocardiogram showed left ventricular hypertrophy, mild atrial enlargement, ejection fraction 60% to 65%, and right ventricular systolic pressure of 37. 3. Hypertensive cardiomyopathy. 4. Hypertension with left ventricular hypertrophy. 5. Chronic diastolic congestive heart failure. a. No evidence of acute congestive heart failure as of 03/31. 6. Probable chronic right heart failure. 7. Chronic obstructive pulmonary disease. a. Complicated by chronic hypoxic respiratory failure, requiring supplemental O2. 8. Post-radioactive iodine hypothyroidism. a. History of hyperthyroidism treated with radioactive iodine years ago. b. Treated with large dose of levothyroxine that is 250 mcg daily. Recent TSH of 40, has dropped to 5.2 as of 03/30/2019. 9. 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 a. Status post embolization in September 2000. 10. Obesity. 11. Cigarette abuse. 12. Mental retardation. 13. Psychotic disorder with hallucination. a. Controlled with risperidone. b. Previous efforts to attempt reduction and stopping of this were unsuccessful. SUMMARY: The patient is a 53-year-old [place] female who has a history of mental retardation, psychotic disorder, controlled with risperidone, hypertensive cardiomyopathy, COPD, probable obstructive sleep apnea and obesity. The patient presented to my office on 03/13/2018 with severe hypoxia and inability to stay awake. She was taken to the emergency room, subsequently transferred to [facility] where she was hospitalized from 03/13/2019 until 03/21/2019 for acute hypoxic and hypercapnic respiratory failure secondary to [id number] diastolic congestive heart failure, initially requiring ventilatory support. She also required a bronchoscopy for removal of mucus plugging. She has probable chronic right heart failure resulting in chronic peripheral edema secondary to her probable obstructive sleep apnea hypoventilation syndrome and obesity. Her echocardiogram showed a left ventricular hypertrophy, mild atrial enlargement, ejection fraction of 60% to 65% and right ventricular systolic pressure of 37. She improved and the [id number] diastolic congestive heart failure resolved. She was placed on continuous supplemental O2. She was transferred to [facility] on 2019 due to her severe deconditioning and weakness. HOSPITAL COURSE: In the hospital, she was left on her O2. She was very noncompliant with this, would take this off frequently and frequently she would walk outside to smoke. 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 She happened to be seen and staffing was able to go and bring her back to the hospital. Her mother usually stays with her, but when this happened she had left. She had no subsequent elopements. She was left on her neb treatments. Overall, she improved. Physical Therapy worked with her and she made excellent progress. Her O2 saturation would drop to 84 on room air when she was walking and would stay in the mid 90s on the 2 L of oxygen. The patient has probable obstructive sleep apnea and hypoventilation syndrome and obesity, which has contributed to her probable chronic right heart failure. A sleep study was done on the evening of 03/28, the results of this are pending. The patient's condition improved. She had no recurrence of her congestive heart failure. She has a history of hyperthyroidism for which she was treated with radioactive iodine years ago that has left her hypothyroid. She has required large doses of thyroid medication that is 250 mcg of levothyroxine daily. Her recent TSH was elevated to 40, suspect from noncompliance with her medication. With her in the hospital and taking medicine regularly, a repeat TSH had dropped to 5. On 03/31 , her condition was stable. She was ambulating well and transferring unassisted. Her condition improved such that it felt like she could be managed at home. She lives with her mother who is her primary caregiver. I have arranged for nebulizer, so that she can continue to receive the DuoNeb twice daily and every 4 hours as needed. Arrangements will be made for her to use O2 at 2 L by nasal cannula continuous. The sleep study is pending. If this is positive, we will arrange for CPAP. We will also arrange for home health to see patient. Encourage the patient should not to smoke. DISPOSITION: DIET No added salt. Restrict fluids to no more than 1500 mL per day. ACTIVITIES I encouraged her to walk. Home Health will see patient. MEDICATIONS: 1. O2 2 L by nasal cannula, continuous. 2. Acetaminophen 325 mg two every 4 hours as needed. 3. DuoNeb 3 mL by nebulizer b.i.d. and every 4 hours as needed. 4. Amlodipine 5 mg daily. 5. Aspirin 81 mg daily. 6. Carvedilol 6.25 mg b.i.d. 7. Clonidine 0.2 mg b.i.d. 8. Furosemide 40 mg daily. 9. Levothyroxine 200 mcg daily. 10. Levothyroxine 50 mcg daily for a total of 250 mcg per day. 11. KCl 10 mEq daily. 12. Risperidone 0.5 mg at bedtime. FOLLOWUP: Home Health will see patient, sleep study pending. We will see patient in my office in 2 weeks with a BMP and CBC. CODE STATUS: Full code. Job ID: [id number] MTDD
== END 2019-03-31 14:20 | disposition home or self-care (01) | DRG 292 ==
LOC: MADMS 17:38
PROVIDERS: ADMIT Family Medicine; ATTEND Family Medicine
DX: I11.0 Hypertensive heart disease with heart failure (principal); Z68.41 Body mass index [BMI] 40.0-44.9, adult; E66.2 Morbid (severe) obesity with alveolar hypoventilation; R44.3 Hallucinations, unspecified; R53.1 Weakness; I42.9 Cardiomyopathy, unspecified; I50.32 Chronic diastolic (congestive) heart failure; R53.81 Other malaise; E03.9 Hypothyroidism, unspecified; Z79.82 Long term (current) use of aspirin; Z79.899 Other long term (current) drug therapy; F17.210 Nicotine dependence, cigarettes, uncomplicated; F78 Other intellectual disabilities; H05.20 Unspecified exophthalmos; T50.8X5A Adverse effect of diagnostic agents, initial encounter
CPT/HCPCS: 36415; 80053; 84443; 85007; 85025; 85027; 90471; 90732; 94640; G0009; J1650; J7620

== ENCOUNTER 2019-07-17 17:16 | Outpatient (CLI) | payer MEDICARE, MEDICAID ==
[2019-07-17 17:57] LABS: Anion Gap 16 mmol/L (10-20); BUN (Urea Nitrogen) 22 mg/dL (9.8-20.1); Calc. Creatinine Clearance 0 mL/min (70-130); Calcium 9.2 mg/dL (7.8-10.44); Carbon Dioxide 27 mmol/L (22-29); Chloride 105 mmol/L (98-107); Estimated GFR-MDRD Greater than 90; Glucose 84 mg/dL (70-105); Potassium 3.3 mmol/L (3.5-5.1); Sodium 145 mmol/L (136-145)
== END 2019-07-17 17:17 | disposition home or self-care (01) ==
LOC: MADLABSP 17:16
PROVIDERS: ATTEND Family Medicine
DX: I11.0 Hypertensive heart disease with heart failure (principal); I50.33 Acute on chronic diastolic (congestive) heart failure
CPT/HCPCS: 80048; 84443

== ENCOUNTER 2020-07-17 08:22 | Emergency (ER) | payer MEDICARE, MEDICAID ==
[2020-07-17 09:37] LABS: Hemoglobin 13.7 g/dL (12.0-16.0); Manual Diff?? YES; Mean Corpuscular HGB CONC 30.2 g/dL (32.0-36.0); Mean Corpuscular Volume 102.6 fL (78.0-98.0); Platelet Count 237 thou/uL (130-400); RBC Distribution Width 16.7 % (11.5-14.5); Red Blood Cell (RBC) Count 4.43 mill/uL (4.20-5.40); White Blood Cell (WBC) Count 7.6 thou/uL (4.8-10.8)
[2020-07-17 09:38] LABS: Band 3 % (5-11); Lymphocytes 28 % (21-51); MDiff Complete? YES; Monocytes 5 % (0-10); Neutrophil 63 % (42-75)
[2020-07-17 09:39] LABS: Anisocytosis SLIGHT = 6-15 cells (100X) (0-5/hpf); Nucleated RBC 1 % (0); Platelet Morphology Comment Appears Adequate
[2020-07-17 09:40] LABS: Macrocytosis SLIGHT = 6-15 cells (100X) (0-5/hpf)
[2020-07-17 09:44] LABS: ALT (SGPT) 54 U/L (8-55); AST (SGOT) 49 U/L (5-34); Albumin 4.3 g/dL (3.5-5.0); Alkaline Phosphatase 112 U/L (40-110); Anion Gap 20 mmol/L (10-20); BUN (Urea Nitrogen) 19 mg/dL (9.8-20.1); Bilirubin, Total 0.7 mg/dL (0.2-1.2); CK (CPK) 200 U/L (29-168); Calc. Creatinine Clearance 0 mL/min (70-130); Calcium 9.1 mg/dL (7.8-10.44); Carbon Dioxide 34 mmol/L (22-29); Globulin 3.2 g/dL (2.4-3.5); Glucose 110 mg/dL (70-105); Lipase 13 U/L (8-78); Protein, Total 7.5 g/dL (6.0-8.3)
[2020-07-17 09:51] LABS: Chloride 94 mmol/L (98-107); Potassium 3.3 mmol/L (3.5-5.1); Sodium 144 mmol/L (136-145)
[2020-07-17] MEDS ORDERED: Potassium Chloride 20 MEQ TAB ONE (10:13)
[2020-07-17] MEDS ORDERED: Furosemide 40 MG/4 ML VIAL ONE (10:13)
== END 2020-07-17 11:16 | disposition home or self-care (01) ==
LOC: MADERS 08:22
DX: R06.00 Dyspnea, unspecified (principal); E83.51 Hypocalcemia; I11.0 Hypertensive heart disease with heart failure; I50.9 Heart failure, unspecified; J45.909 Unspecified asthma, uncomplicated; E03.9 Hypothyroidism, unspecified; F17.210 Nicotine dependence, cigarettes, uncomplicated; Z79.82 Long term (current) use of aspirin; Z79.899 Other long term (current) drug therapy
CPT/HCPCS: 71045; 80053; 82550; 83690; 83880; 84484; 85025; 93005; 94760; 96374; J1940; J7620